=== PATIENT | female | born 1955 | race Two or more races ===

== ENCOUNTER 2023-08-12 05:35 | Day surgery (SDC) | payer OTHER ==
[~2023-08-12 05:35] MED LIST: AMITRIPTYLINE H10 MG PO; BACLOFEN5 MG PO; HORIZANT300 MG PO; IRBESARTAN-HCT1 EAC1 PO; TRAMADOL HCL50 MG PO; TYLENOL ARTHRI650 MG PO; ZANAFLEX4 MG PO; ZEGERID 40 MG1 EACH PO; ZOCOR40 MG PO; ZOLPIDEM TARTRA10 MG PO
[2023-08-12] MEDS ORDERED: TRAM1TAB98 PO (12:16)
[2023-08-12] MEDS ORDERED: MACROBID 100 M100 MG PO (12:16)
== END 2023-08-12 14:35 | disposition home or self-care (01) ==
LOC: CIR.AMB 05:35
PROVIDERS: ATTEND Obstetrics & Gynecology Gynecology
DX: N81.6 Rectocele (principal); N81.10 Cystocele, unspecified; N81.5 Vaginal enterocele; N89.4 Leukoplakia of vagina; Z20.822 Contact with and (suspected) exposure to COVID-19; I10 Essential (primary) hypertension